=== PATIENT | female | born 1985 | race Caucasian/White ===

== ENCOUNTER 2022-03-26 15:54 | Emergency (ER) | payer OTHER, SELFPAY ==
--- NOTE | 2022-03-26 15:57 | ED.FEMALEGU ---
HPI - Female Genitourinary General Stated complaint: Poss UTI Time Seen by Provider: 03/26/22 16:20 Source: patient and RN notes reviewed Mode of arrival: ambulatory Limitations: no limitations History of Present Illness HPI Narrative: 36-year-old female presents with concern for urine urgency, frequency, dysuria that started on Sunday. She denies back pain, abdominal pain, nausea, vomiting, chills, fever. She has increased her water intake. Patient is currently on her menses MD elicited complaint: UTI Related Data Home Medications Medication Instructions Recorded Confirmed No Home Medications 03/26/22 03/26/22 Allergies Allergy/AdvReac Type Severity Reaction Status Date / Time azithromycin AdvReac Unknown Diarrhea Verified 03/26/22 16:04 ibuprofen AdvReac Unknown stomach Verified 03/26/22 16:04 cramps and diarrhea Review of Systems Review of Systems: CONSTITUTIONAL: Denies malaise, chills, sweats, or fever. CARDIOVASCULAR: Denies chest pain, palpitations, or edema. RESPIRATORY: Denies cough or dyspnea. GASTROINTESTINAL: Denies abdominal pain, nausea, vomiting, diarrhea GENITOURINARY: Reports dysuria, frequency, urgency. Denies flank pain or hematuria. SKIN: Denies rash or itching. MUSCULOSKELETAL: Denies back pain or myalgia. All systems reviewed & are unremarkable except as noted in HPI and below PMFSH Comments At time of signature, agree with nursing past medical, surgical, social and family history. There is no relevant family history pertinent to the presenting complaint Exam Narrative: GENERAL: Well-appearing, well-nourished, and in no acute distress. HEAD: Normocephalic. EYES: PERRLA, conjunctivae clear. NECK: Supple. No lymphadenopathy CHEST: Clear to auscultation. No respiratory distress. HEART: Regular rate and rhythm. ABDOMEN: Soft, nontender upon palpation, nondistended, normal active bowel sounds, no palpable or pulsatile masses, no guarding. No CVA tenderness SKIN: Warm, dry, no rash. NEURO: Alert and oriented x3. PSYCH: Normal mood and affect Course Course Emergency Course: Discussed urinalysis results with patient, urine is negative other than blood, patient is on her period. Discussed starting antibiotics now or waiting for urine culture. Patient states that she does not handle antibiotics well because she has IBS and she preferred to not take them if she does not have to. To share decision making, decided to wait for urine culture results before antibiotic as prescribed Patient is aware of diagnosis, understands and agrees to treatment plan. Anticipatory guidance given. Patient agrees to follow-up as directed and is aware of reasons to seek care at the emergency department. Portions of this record may have been created with voice recognition software Level of Care: Express Care Visit Vital Signs Vital signs: Reviewed. MDM - Female Genitourinary MDM Narrative Medical decision making narrative: Exam findings and UA show no acute concerns or changes; patient is non-toxic appearing and is in no distress. Patient is appropriate for outpatient treatment and follow-up. Differential Diagnosis Differential diagnosis: Likely urinary tract infection and cystitis Critical Care Time Critical Care Time Critical Care Time: No Discharge Plan Discharge Clinical Impression: Dysuria Patient Disposition: Home, Self-Care Condition: Stable Instructions: Dysuria (ED) Additional Instructions: We will send a urine culture to the lab; if the culture identifies an organism requires an antibiotic, you will receive a phone call from an urgent care staff member and an appropriate antibiotic will be prescribed. -Increase water intake. Tylenol/ibuprofen as needed for pain -Follow-up with your primary care provider if your Urine is normal and your symptoms persist. seek ER visit if condition worsens with high fever, nausea, vomiting and severe back pain. Follow-up/Referral
[2022-03-26 16:02] VITALS: BP 109/65; PULSE 76; RESP 16; TEMP 37.6; O2SAT 100
== END 2022-03-26 16:29 | disposition home or self-care (01) ==
PROVIDERS: Emergency Provider Nurse Practitioner; PCP Physician Assistant
DX: R30.0 Dysuria (principal)
CPT/HCPCS: 81003; 87086; 99203; G0463